=== PATIENT | female | born 1980 | race Caucasian/White ===

== ENCOUNTER → 2019-06-23 | Day surgery (SDC) | payer OTHER ==
[~2019-06-23] MED LIST: FAMO-63 PO; IV RINGERS,LACTATED 1000ML 1,000 ML IV SCH; LIDOCAINE 2% PF 5 ML VIAL. ONE; PROPOFOL 40 ML IV ONE
[2019-06-23 08:51] VITALS: BP 92/63
== END | disposition home or self-care (01) ==
LOC: ENDOS 06:42
PROVIDERS: ATTEND Internal Medicine Gastroenterology
DX: D50.9 Iron deficiency anemia, unspecified (principal); K64.0 First degree hemorrhoids; K29.51 Unspecified chronic gastritis with bleeding; K63.89 Other specified diseases of intestine; Z79.899 Other long term (current) drug therapy; Z98.890 Other specified postprocedural states; Z98.51 Tubal ligation status
CPT/HCPCS: 43235; 45378; 81025; J2001; J2704